=== PATIENT | male | born 1945 | race Caucasian/White ===

== ENCOUNTER 2022-08-21 08:13 | Emergency (ER) | payer MEDICARE, OTHER, SELFPAY ==
[2022-08-21 08:17] VITALS: BP 111/57; PULSE 78; RESP 18; TEMP 36.3; O2SAT 95
--- NOTE | 2022-08-21 08:35 | DI.RAD_ITS ---
Exam(s) XR ABDOMEN FLAT UPRIGHT EXAM: 2D digital imaging was performed. CLINICAL HISTORY: abdominal, rectal pain. COMPARISON: No exams were available for comparison TECHNIQUE: Supine and uprightSupine and Lateral views of the abdomen was performed. Five images we re obtained. FINDINGS: LUNG BASES: Clear. BOWEL GAS PATTERN: Nondistended. FREE AIR: None. CALCIFICATIONS: No radiopaque calcifications. OSSEOUS STRUCTURES: Normal for age. There is a left convex lumbar scoliosis. OTHER FINDINGS: Atherosclerosis is present there is an IVC filter in place. IMPRESSION: No evidence of an acute abdomen. DATA REPOSITORY: RADIATION DOSE DELIVERED:
--- NOTE | 2022-08-21 09:21 | DI.VRAD_ITS ---
PROCEDURE INFORMATION: Exam: XR Abdomen Exam date and time: 08/21/2022 8:45 AM Age: 76 years old Clinical indication: Other: Abdominal, rectal pain TECHNIQUE: Imaging protocol: Radiologic exam of the abdomen. Views: 2 Views. Upright and supine views. COMPARISON: No relevant prior studies available. FINDINGS: Gastrointestinal tract: Mild non-specific gaseous distention in the bowel. Intraperitoneal space: Normal. No free air. Bones/joints: Moderate to severe degenerative changes in the lumbar spine and levoscoliosis IVC filter noted IMPRESSION: Non-specific bowel gas pattern Dictated and Authenticated by: Dustin De Jesus MD. Ordering:STONEY Figueroa MD
--- NOTE | 2022-08-21 10:31 | ED.GENADUL_ITS ---
Discharge Plan Disposition Patient Disposition: Home Discharge Details Clinical Impression: Abdominal pain Primary Care Provider: None,None ED Provider: Carolina Power Discharge Instructions Instructions: Constipation (DC) Additional Instructions: Take the magnesium citrate You will likely have a bowel movement within 1 to 2 hours, you may try initiating half the bottle and complete the bottle if you are unsuccessful You this will likely cause diarrhea If you continue to have pain and constipation, you should be reassessed as we have not performed CT scan or diagnostic blood work at this time You may also purchase some Metamucil and continue on the Colace Discharge Data Discharge Date/Time-TO BE ENTERED AT DEPARTURE: 08/21/22 11:00 Medical Decision Making 76-year-old male presents with report of constipation, has been taking Colace at home, no BM for the past several days No abdominal tenderness on exam, we talked about CAT scan and labs, patient states I know my body and I am constipated, he is agreeable to x-ray at this time, x-ray shows moderate stool volume without obvious free air or air-fluid levels Unable to manually disimpact patient, the enema was attempted without good effect as patient was unable to hold the fluid Tried soapsuds enema and this was also unsuccessful as patient was unable to hold the fluid in his rectum On reassessment it actually sounds like patient was able to move some stool and is feeling some improvement but not completely alleviated He is requesting to be discharged home at this time, he was given a bottle of magnesium citrate and encouraged to continue taking his Colace He will follow-up with his doctor when he returns home as he currently resides in [place] He is aware that we have not perform CT imaging or diagnostic blood work and should his pain persist or worsen he must return immediately for reassessment, he is fully alert, oriented, decisional capacity and vitals are stable both at time of initial assessment and discharged home Medical Records Medical records reviewed: Yes I reviewed the patient's medical records. HPI General Date/Time Provider Initiated Documentation: 08/21/22 08:25 . HPI Narrative: This 76-year-old gentleman with history of CVA, peripheral vascular disease, atrial fibrillation, anticoagulated on Eliquis, diabetes on new medications that cause constipation presents with report of report of constipation. He states has not been able to move his bowels for the past several days and is having pressure in his rectum. He states he has had some leaking of watery stool. He denies any fever or chills. He is visiting from [place] per patient. Denies any nausea or vomiting. Related Data Allergies Allergy/AdvReac Type Severity Reaction Status Date / Time ampicillin Allergy Unverified 08/21/22 08:20 General Stated Complaint: [facility] ESME: 3 PFSH All Active Problems (Updated 08/21/22 @ 10:37 by GAEL Montgomery) Abdominal pain (Acute) Social History Smoking/Tobacco Use Status: Never Smoking risk assessment performed?: Yes Alcohol Intake: current Alcohol Intake frequency: holidays/special occasions only Substance use type: does not use Exam Narrative Exam Narrative: Patient is calm and cooperative, he has no abdominal tenderness on exam, rectal exam was performed for further evaluation and there is no significant stool in rectal vault, there is watery diarrhea with some stool palpated no respiratory distress, cardiac rate regular Course Vital Signs Vital signs: Vital Signs Temperature 36.3 C L 08/21/22 08:17 Pulse 78 08/21/22 08:17 Respiratory Rate 18 08/21/22 08:17 Blood Pressure 111/57 L 08/21/22 08:17 Pulse Oximetry 95 08/21/22 08:17 Temperature 36.3 C L 08/21/22 08:17 Temperature Source Temporal Artery Scan 08/21/22 08:17 Pulse 78 08/21/22 08:17 Respiratory Rate 18 08/21/22 08:17 Respiratory Effort Normal, Non-Labored 08/21/22 08:19 Blood Pressure 111/57 L 08/21/22 08:17 Pulse Oximetry 95 08/21/22 08:17 Oxygen Delivery Method Room Air 08/21/22 08:17 Oxygen Flow Rate 0 08/21/22 08:17 PAWSS Have you Been Recently Intoxicated or Drunk Within the Last 30 days?: No Have you Ever Experienced Previous Episodes of Alcohol Withdrawal?: No Have you ever Experienced Withdrawal Seizures?: No Have you ever Experienced Delirium Tremens(DT)s?: No Have you ever undergone Alcohol Rehabilitation Treatment (i.e, inpt ot outpatien t treatment programs)?: No Have you ever Experienced Blackouts?: No Have you ever Combined Alcohol with other Downers within the last 90 days?: No Have you ever Combined Alcohol with any other Substance of Abuse during the last 90 days?: No Positive Blood Alcohol level on Presentation? [PCS.BAL]: No Evidence of Increased Autonomic Activity (i.e. HR>120, tremor, sweating, agitation, nausea)?: No Result: 0
[2022-08-21 10:34] VITALS: RESP 18
[2022-08-21 10:58] VITALS: PULSE 80; RESP 20; O2SAT 97
--- NOTE | 2022-08-21 10:59 | NUR.NOTE ---
Nursing Note: Larissa was sent home with mag citrate to drink to try to pass blockage. Pyxis not working appropriately. Not able to chart administration of medication.
== END 2022-08-21 11:00 | disposition home or self-care (01) ==
PROVIDERS: Emergency Provider Physician Assistant
DX: R10.9 Unspecified abdominal pain (principal); E11.9 Type 2 diabetes mellitus without complications; I48.91 Unspecified atrial fibrillation; Z79.899 Other long term (current) drug therapy
CPT/HCPCS: 99283; 74019